=== PATIENT | male | born 1970 | race Caucasian/White ===

== ENCOUNTER 2017-07-10 07:04 | Emergency (ER) | payer SELFPAY ==
[2017-07-10 08:07] LABS: #Lymphocytes 0.7 thou/uL (1.20-3.40); #Monocytes 0.8 thou/uL (0.11-0.59); %Basophils 0.3 % (0.0-1.0); %Eosinophils 0.1 % (0.0-10.0); %Lymphocytes 5.8 % (21.0-51.0); %Monocytes 6.1 % (0.0-10.0); Hematocrit 58.4 % (42.0-52.0); Mean Platelet Volume 8.1 fL (7.4-10.4); Red Blood Cell (RBC) Count 6.65 mill/uL (4.70-6.10); White Blood Cell (WBC) Count 12.5 thou/uL (4.8-10.8)
[2017-07-10 08:31] LABS: ALT (SGPT) 32 U/L (8-55); AST (SGOT) 20 U/L (5-34); Alkaline Phosphatase 84 U/L (40-150); Anion Gap 15 mmol/L (10-20); BUN (Urea Nitrogen) 18 mg/dL (8.9-20.6); Bilirubin, Total 0.8 mg/dL (0.2-1.2); Calc. Creatinine Clearance 0 mL/min (70-130); Calcium 9.9 mg/dL (7.8-10.44); Carbon Dioxide 22 mmol/L (22-29); Chloride 105 mmol/L (98-107); Estimated GFR-MDRD 65; Globulin 3.3 g/dL (2.4-3.5); Protein, Total 7.7 g/dL (6.0-8.3)
[2017-07-10 08:36] LABS: Troponin I Less than 0.010 ng/mL (< 0.028)
[2017-07-10] MEDS ORDERED: Ketorolac Tromethamine 30 MG/ML VIAL ONE (08:50)
[2017-07-10] MEDS ORDERED: Ondansetron HCl/PF 4 MG/2 ML Vial ONE (08:50)
--- NOTE | 2017-07-10 08:57 | RAD ---
PORTABLE CHEST: 07/10/2017 PROVIDED CLINICAL HISTORY: Chest pain. COMPARISON: 03/25/2013 FINDINGS: The cardiac and mediastinal silhouette are unchanged in appearance. There is possible air space dise ase at the medial right lung base versus subsegmental atelectasis. The lungs appear otherwise clear. No pleural fluid or pneumothorax apparent. Postoperative changes involving the left clavicle area again seen. IMPRESSION: Questionable air space disease at the right lung base versus subsegmental atelectasis. Please correl ate with concerns for pneumonia. Follow-up PA and lateral views of the chest are recommended. POS: [facility]
--- NOTE | 2017-07-10 09:25 | RAD ---
ABDOMEN TWO VIEWS: History: Abdominal pain. Comparison: None. FINDINGS: On the upright view, no free air in the hemidiaphragms. No dilated air filled loops of large or small bowel. Phleboliths in the pelvis. No abnormal calcification projecting over the renal shadows. IMPRESSION: No acute intraabdominal abnormality. POS: [facility]
--- NOTE | 2017-07-13 15:00 | EKG ---
Test Reason : Blood Pressure : / mmHG Vent. Rate : 098 BPM Atrial Rate : 098 BPM P-R Int : 134 ms QRS Dur : 084 ms QT Int : 354 ms P-R-T Axes : 022 029 021 degrees QTc Int : 451 ms Normal sinus rhythm Normal ECG Confirmed by SELVIN MCKEON D.O. ([id number]), copy editor MELISSA TOVAR ([id number]) on 07/13/2017 2:59:31 PM Referred By: Confirmed By:SELVIN MCKEON D.O.
== END 2017-07-10 11:54 | disposition home or self-care (01) ==
LOC: ERS 07:04
DX: J18.9 Pneumonia, unspecified organism (principal); K52.9 Noninfective gastroenteritis and colitis, unspecified; Z71.6 Tobacco abuse counseling; F17.210 Nicotine dependence, cigarettes, uncomplicated
CPT/HCPCS: 71010; 74020; 80053; 82553; 84484; 85025; 93005; 96361; 96374; 96375; 99406; J1885; J2405

== ENCOUNTER 2017-11-09 11:07 | Observation (INO) | payer SELFPAY ==
[2017-11-09 12:05] LABS: #Basophils 0.1 thou/uL (0.0-0.2); #Eosinphils 0.1 thou/uL (0.0-0.7); #Lymphocytes 2.1 thou/uL (1.20-3.40); #Monocytes 0.6 thou/uL (0.11-0.59); #Neutrophils 4.7 thou/uL (1.40-6.50); %Basophils 0.7 % (0.0-1.0); %Eosinophils 1.5 % (0.0-10.0); %Lymphocytes 27.4 % (21.0-51.0); %Monocytes 8.3 % (0.0-10.0); %Neutrophils 62.1 % (42.0-75.0); Mean Corpuscular HGB CONC 34.2 g/dL (32.0-36.0); Mean Corpuscular Hemoglobin 29.6 pg (27.0-31.0); Mean Corpuscular Volume 86.5 fl (80.0-94.0); Mean Platelet Volume 7.5 fL (7.4-10.4); Platelet Count 196 thou/uL (130-400); RBC Distribution Width 13.3 % (11.5-14.5); Red Blood Cell (RBC) Count 6.08 mill/uL (4.70-6.10); White Blood Cell (WBC) Count 7.5 thou/uL (4.8-10.8)
--- NOTE | 2017-11-09 12:20 | CT ---
CT BRAIN: DATE: 11/09/17. PROVIDED CLINICAL HISTORY: Syncope. FINDINGS: Comparison 03/25/13. The ventricular system appears normal in size and morphology. There is no evide nce for intracranial hemorrhage or mass effect. The extracranial soft tissues and osseous structures demonstrate an unremarkable CT appearance. IMPRESSION: No evidence for intracranial hemorrhage or mass effect. POS: [facility]
[2017-11-09 12:24] LABS: ALT (SGPT) 18 U/L (8-55); AST (SGOT) 13 U/L (5-34); Albumin 4.2 g/dL (3.5-5.0); Alcohol 13 mg/dL (Less than 10); Alkaline Phosphatase 81 U/L (40-150); Anion Gap 14 mmol/L (10-20); BUN (Urea Nitrogen) 11 mg/dL (8.9-20.6); Bilirubin, Total 0.7 mg/dL (0.2-1.2); CK (CPK) 118 U/L (30-200); Calc. Creatinine Clearance 0 mL/min (70-130); Calcium 8.9 mg/dL (7.8-10.44); Carbon Dioxide 19 mmol/L (22-29); Chloride 112 mmol/L (98-107); Estimated GFR-MDRD 80; Globulin 2.9 g/dL (2.4-3.5); Glucose 89 mg/dL (70-105); Protein, Total 7.1 g/dL (6.0-8.3); Sodium 141 mmol/L (136-145)
[2017-11-09 12:26] LABS: CKMB 1.1 ng/mL (0-6.6)
--- NOTE | 2017-11-09 12:33 | CT ---
CT CERVICAL SPINE NONCONTRAST: HISTORY: A 47-year-old male status post acute cervical trauma. FINDINGS: There are no jumped or perched facets. There is no evidence of acute fracture. The vertebral body h eights are maintained. There is no prevertebral soft tissue swelling. IMPRESSION: No evidence of acute fracture or acute traumatic subluxation. titi [] POS: [facility]
[2017-11-09 12:34] LABS: Troponin I 0.011 ng/mL (< 0.028)
--- NOTE | 2017-11-09 13:08 | RAD ---
RADIOGRAPH CHEST 1 VIEW: Date: 11/09/17. Time: 11:55 a.m. HISTORY: A 47-year-old male status post syncope. COMPARISON: 07/10/17. FINDINGS: Again noted are the metallic plate and screws fixating the left clavicle. No cardiomegaly. No conso lidation or pulmonary edema. No pneumothorax. Lateral costophrenic angles are sharp. Apparently ne w finding of a small stellate right perihilar nodular density. This may be part of normal hilar stru ctures rather than a pathologic mass, perhaps due to positional differences between the current study and the prior. IMPRESSION: 1. No acute cardiopulmonary findings. 2. Questionable right perihilar stellate density. 3. Recommend followup with PA and lateral views. SONIA [] POS: [facility]
[2017-11-09 13:59] LABS: Bilirubin Negative (Negative); Blood, Urine Negative (Negative); Clarity CLEAR (Clear); Glucose, Urine (Dipstick) Negative (Negative); Leukocyte Negative (Negative); Nitrite Negative (Negative); Protein, Urine (Dipstick) Negative (Neg-Trace); Urobilinogen 0.2 mg/dL (0.2-1.0); pH, Urine 5.5 (5.0-9.0)
[2017-11-09 14:01] LABS: Amphetamine Not Detected (NotDetected); Barbiturates Screen Not Detected (NotDetected); Benzodiazepine Screen Not Detected (NotDetected); Cocaine Metabolite Screen Not Detected (NotDetected); Medtox Control Line Valid? VALID (VALID); Medtox Reader # READER 1; Methadone Not Detected (NotDetected); Methamphetamine Not Detected (NotDetected); Opiate Screen Not Detected (NotDetected); Oxycodone Screen Not Detected (NotDetected); Phencyclidine (PCP) Not Detected (NotDetected); THC/Cannabinoid Screen Not Detected (NotDetected); Tricyclic Screen Not Detected (NotDetected)
[2017-11-09] MEDS ORDERED: Methocarbamol 1 GM/10 ML VIAL SLOW IVP SCH (15:00)
[2017-11-09] MEDS ORDERED: Ketorolac Tromethamine 30 MG/ML VIAL ONE (15:00)
[2017-11-09] MEDS ORDERED: ISOVUE-370 76%-LOCM 1 ML ONE (15:20)
--- NOTE | 2017-11-09 15:42 | CT ---
CT ANGIOGRAM GREAT VESSELS NECK WITH IV CONTRAST AND 3D MIP RECONSTRUCTIONS CT ANGIOGRAM BRAIN WITH IV CONTRAST AND 3D MIP RECONSTRUCTIONS CTA PERFUSION BRAIN: PROVIDED CLINICAL HISTORY: Syncope. FINDINGS: There is a normal 3-vessel configuration of the great vessels of the arch. There is no significant s tenosis involving the common carotid, internal carotid, or vertebral arteries. There is no evidence for focal vessel stenosis, branch occlusion, or aneurysm involving the [place]. There is no asymmetric increased mean transit time seen to suggest territorial ischemia. IMPRESSION: 1. Negative CT angiogram neck. 2. Negative CT angiogram brain with perfusion. POS: [facility]
--- NOTE | 2017-11-09 17:16 | RAD ---
LEFT SHOULDER RADIOGRAPHS THREE VIEWS 11/09/17 PROVIDED CLINICAL HISTORY: Syncope. FINDINGS: Postoperative changes involving the left clavicle are seen. There is no evidence for fracture or othe r acute osseous abnormality. If there is persistent clinical concern, conservative management and fol lowup imaging are advised. IMPRESSION: As above. POS: [facility]
[2017-11-09] MEDS ORDERED: Labetalol HCl 100 MG/20 ML VIAL SLOW IVP PRN (18:14)
[2017-11-09] MEDS ORDERED: Acetaminophen 325 MG TAB PO PRN (18:14)
[2017-11-09] MEDS ORDERED: Ondansetron PF 4 MG/2 ML Vial IVP PRN (18:14)
[2017-11-09] MEDS ORDERED: hydrALAZINE 20 MG/ML VIAL SLOW IVP PRN (18:14)
[2017-11-09] MEDS ORDERED: Aspirin 81 mg Enteric Coated Tablet PO SCH (18:30)
[2017-11-09 18:44] LABS: Actual Bicarbonate (HCO3a) 23.2 mEq/L (22-26); Base Excess (BEa) -0.8 mEq/L (0 (+/-) 2.5); CO2 Tension 36.8 mmHg (35.0-45.0); Carboxyhemoglobin (COHb) 4.7 gm% (0.0-3.0); Hematocrit-ABG 48.8 % (42.0-52.0); Hemoglobin (Hb) 16.9 g/dL (14.0-18.0); O2 Tension (PaO2) 75.5 mmHg (80.0-100.0); pH, Arterial 7.42 (7.35-7.45)
[2017-11-09 18:45] LABS: Analyzer IN Cardio ER; Calcium, Ionized 1.2 mmol/L (1.12-1.30); Potassium - ABG Lab 3.4 mmol/L (3.70-5.30); Puncture Site RRA
[2017-11-09 19:38] VITALS: BMI 33.3
[2017-11-09 20:29] LABS: Bacteria/HPF None Seen HPF (None Seen); Hyaline Casts/LPF NONE SEEN LPF (0-3 Hyaline); RBC/HPF None Seen HPF (0-3); Squamous Epithelial 0-3 HPF (0-3); WBC/HPF None Seen HPF (0-3)
--- NOTE | 2017-11-09 20:44 | HP ---
CHIEF COMPLAINT: Altered mental status. HISTORY OF PRESENT ILLNESS: This is a 47-year-old male with minimal past medical history, who was brought in after he failed to answer phone calls from his father. He was brought in by EMS. He was found unresponsive by EMS and brought in for altered mental status. At the time of my evaluation, the patient is currently awake and conversant, although he endorses being somewhat "groggy" and has difficulty answering questions, but when he does answer the questions they appear to be appropriate answers. The patient's and father are with him at bedside and state that he has had a somewhat similar event where he had loss of memory several years ago. This slowly came back after several months. However, at this point in time he has no actual loss of memory, he is simply groggy. The recent sequence of advances, he was last seen in a normal state by his yesterday. He went out for dinner and drinks with 4 of his colleagues and that was the last time she saw him. REVIEW OF SYSTEMS: As per HPI. Constitutional: In the last 2 weeks, no issues with weight loss or gain or fevers and chills. No recent illnesses. HEENT: No recent complaints of headache or vision changes. Cardiovascular: No recent issues with chest pain, chest pressure, left-sided arm numbness or tingling. Respiratory: No recent complaints of shortness of breath. No recent upper respiratory infection. No recent cough. No recent issues with congestion. Gastrointestinal: No recent complaints of nausea or vomiting. The patient has been demonstrating a retained appetite. No complaints of diarrhea or constipation. Genitourinary: No complaints of dysuria or urinary frequency or change in urine color, quantity, or odor. Musculoskeletal: No recent complaints of myalgias or arthralgias. Remainder of the review of systems otherwise negative. PAST MEDICAL HISTORY: The patient has no known past medical issues that he is aware of. It appears that during his evaluation, several years ago at our facility, there is concern for intracranial hypertension, but the patient himself does not endorse any known medical issues. His last surgery was in 2009 , involved a plate placement in his right shoulder for a skeletal injury. HOME MEDICATIONS: None. The patient denies any over the counters, herbals, vitamins or supplements. ALLERGIES: No allergy listed. FAMILY HISTORY: Significant for cardiac disease and breast cancer and the patient's niece has seizures and takes antiepileptic medications. No other family members with issues with seizures, loss of consciousness or strokes. SOCIAL HISTORY: Occasional alcohol use, no illicit drug use. The patient is accompanied by his father and . He endorses wishing to be FULL CODE at this point in time. PHYSICAL EXAMINATION: GENERAL: The patient is lying in the hospital bed, in no acute distress, somnolent, but arousable as described above. HEENT: Normocephalic, atraumatic. Moist mucous membranes, equal ocular motions are intact. Reasonable dentition. No posterior oropharyngeal erythema or exudate. CARDIOVASCULAR: S1, S2. No murmurs, rubs or gallops. Pulses 2+ bilateral upper extremities, no pitting pedal edema. No carotid bruits. RESPIRATORY: Limited anterior examination, otherwise no conversational dyspnea. No wheezes, rales or rhonchi. Reasonable air movement. ABDOMEN: Positive bowel sounds, soft, nontender to palpation. MUSCULOSKELETAL: Moving all 4 extremities independently. LABORATORY DATA AND IMAGING: WBC 7.5, hemoglobin 18.0, hematocrit is 52.6, platelets 196. Sodium 141, potassium 4.0, chloride 112, bicarb 19, BUN 11, creatinine 1.00, glucose 89, calcium 8.9, total bilirubin 0.7, AST 13, ALT 18, alkaline phosphatase 81, creatine kinase 118, troponin 0.011, serum total protein 7.1, albumin 4.2, TSH 1.29. UA is bland. UDS is negative. Serum alcohol level is 13. On 11/09/2017, shoulder x-ray. Impression: "Postoperative changes involving the left clavicle are seen. There is no evidence for fracture or other acute osseous abnormality. If there is persistent clinical concern, conservative management and follow up imaging are advised." On 11/09/2017, CTA of the head and neck with perfusion. Impression: "Negative CT angiogram neck. Negative CT angiogram brain with perfusion." On 11/09/2017, Chest x-ray. Impression: "No acute cardiopulmonary findings. Questionable right perihilar stellate density. Recommend follow up with PA and lateral views." On 11/09/2017, CT of the cervical spine without contrast. Impression: "No evidence of acute fracture or acute traumatic subluxation." On 11/09/2017, brain CT. Impression: "No evidence for intracranial hemorrhage or mass effect." ASSESSMENT AND PLAN: A 47-year-old male presenting with altered mental status. Altered mental status appears to be improving without evidence so far of memory loss. Follow up with an MRI, EEG. I appreciate Neurology consult. Unclear exact etiology, question of the role that his prior intracranial hypertension have played. Serial vital signs, serial neurological monitoring. Admit the patient to stroke unit under observation status. Thank you for asking me to care for the patient. Questions or concerns, contact me at [facility]. BARBARA
[2017-11-09] MEDS ORDERED: Atorvastatin Calcium 40 MG TAB PO SCH (21:00)
[2017-11-09] MEDS: Heparin 5,000 UNITS/ML VIAL SC SCH (22:51)
[2017-11-10 04:46] LABS: #Basophils 0.1 thou/uL (0.0-0.2); #Eosinphils 0.2 thou/uL (0.0-0.7); #Monocytes 0.7 thou/uL (0.11-0.59); #Neutrophils 4.6 thou/uL (1.40-6.50); %Basophils 0.7 % (0.0-1.0); %Eosinophils 2.8 % (0.0-10.0); %Lymphocytes 34.8 % (21.0-51.0); %Monocytes 8.5 % (0.0-10.0); %Neutrophils 53.3 % (42.0-75.0); Hemoglobin 16.4 g/dL (14.0-18.0); Mean Corpuscular HGB CONC 34.4 g/dL (32.0-36.0); Mean Corpuscular Volume 87.2 fl (80.0-94.0); Mean Platelet Volume 7.7 fL (7.4-10.4); Platelet Count 192 thou/uL (130-400); RBC Distribution Width 13.1 % (11.5-14.5); Red Blood Cell (RBC) Count 5.49 mill/uL (4.70-6.10); White Blood Cell (WBC) Count 8.6 thou/uL (4.8-10.8)
[2017-11-10 05:15] LABS: ALT (SGPT) 15 U/L (8-55); AST (SGOT) 11 U/L (5-34); Albumin 3.6 g/dL (3.5-5.0); Alkaline Phosphatase 72 U/L (40-150); Anion Gap 10 mmol/L (10-20); BUN (Urea Nitrogen) 15 mg/dL (8.9-20.6); Bilirubin, Total 0.7 mg/dL (0.2-1.2); Calc. Creatinine Clearance 113 mL/min (70-130); Calcium 8.6 mg/dL (7.8-10.44); Carbon Dioxide 26 mmol/L (22-29); Cardiac Risk 6.4 (Less than 4.5); Chloride 109 mmol/L (98-107); Cholesterol 178 mg/dl (< 200 Desired); Estimated GFR-MDRD 67; Glucose 99 mg/dL (70-105); HDL Cholesterol 28 mg/dL (>60 Neg Risk); Magnesium 2.4 mg/dL (1.6-2.6); Potassium 3.5 mmol/L (3.5-5.1); Protein, Total 6.6 g/dL (6.0-8.3); Sodium 141 mmol/L (136-145); Triglycerides 597 mg/dL (Less than 150)
[2017-11-10] MEDS ORDERED: Aspirin 81 mg Enteric Coated Tablet PO SCH (09:00)
[2017-11-10] MEDS: Heparin 5,000 UNITS/ML VIAL SC SCH ×2 (09:21→15:04)
--- NOTE | 2017-11-10 10:38 | PDOC.PN ---
- Subjective Encounter Start Date: 11/10/17 Encounter Start Time: 11:50 CC: Altered mental status sub: pt denies confusion, mental status improving - Objective Resuscitation Status: Resuscitation Status FULL:Full Resuscitation Vital Signs & Weight: Vital Signs (12 hours) Temp Pulse Resp BP Pulse Ox 11/10/17 08:00 97.5 F L 63 16 11/10/17 07:57 97.5 F L 63 16 111/67 95 11/10/17 03:43 97.5 F L 80 16 102/72 95 11/09/17 23:54 97.6 F 60 16 124/77 95 Weight Weight 226 lb 2 oz Result Diagrams: 11/10/17 04:18 11/10/17 04:18 Phys Exam - Physical Examination Constitutional: NAD HEENT: moist MMs Neck: no JVD Respiratory: no wheezing, no rales, no rhonchi Cardiovascular: RRR, no significant murmur, no rub Gastrointestinal: soft, non-tender, no distention Musculoskeletal: no edema Neurological: non-focal, moves all 4 limbs Psychiatric: normal affect, A&O x 3 Skin: no rash Dx/Plan - Plan Pt is 47 yrs old male now admitted to hospital for altered mental status 1. Altered mental status: MRI pending CT no acute stroke Continue neurochecks 2. DVT & GI prophylaxis: SCD & PPI Case d/w pt & RN
--- NOTE | 2017-11-10 13:29 | MRI ---
MRI BRAIN NONCONTRAST: DATE: 11/10/17. HISTORY: A 47-year-old male with TIA and syncope. FINDINGS: The ventricles are normal in size and configuration. There is no major intraaxial signal abnormality , restricted diffusion, midline shift or any other mass effect, recent intraaxial hemorrhage, or extr aaxial fluid collection. The sella turcica is expanded, and filled with CSF. The pituitary gland is very thin and flattened along the floor of the sella turcica. The bone marrow signal of the clivus is normal. There are several small T2 hyperintense ovoid lesions in the nasopharyngeal mucosal space , probably representing mucous retention cysts. IMPRESSION: 1. The brain is normal. 2. Partially empty sella. jn[] POS: [facility]
[2017-11-10 15:42] VITALS: BP 136/77; TEMP 97.8
--- NOTE | 2017-11-11 16:12 | CON ---
DATE OF CONSULTATION: 11/10/2017 CONSULTING PHYSICIAN: Hospitalist Service. IMPRESSION: Period of amnesia probably secondary to alcohol use. PLAN: MRI of the brain. Mr. Gutierrez is a 47-year-old man, who reports he was out at [place] drinking with friends. He got in his truck and was getting ready to leave. He apparently lost consciousness at that point and sle pt in the truck overnight. When he woke up in the morning, he was having difficulty functioning. He tried to get some people that were passing by to tend to him, but he finally was able to get someone to come over to the truck and they called for an ambulance. He reports that he was looking at thing s and they did not make sense to him as to what he was looking at. He came into the emergency room y esterday. His workup included a CT and CTA, both of which were unremarkable. His laboratory studies showed a negative drug screen with alcohol level of 13. His chemistry panel was otherwise unremarka ble. He reports that today things seemed to be going reasonably well. Yesterday, he recall that the re was pain in the left shoulder down to the elbow, it was deep and aching. He had an episode of amn esia 4 years ago, which was attributed to a concussion. He denies any other episodes like this in be tween. PAST MEDICAL HISTORY: Otherwise negative. FAMILY HISTORY: Noncontributory. ALLERGIES: PENICILLIN. SOCIAL HISTORY: Positive for alcohol, but denies any illicit drug use. MEDICATIONS: None. REVIEW OF SYSTEMS: No complaint of headache, nausea, vomiting, vertigo, lateralized weakness or numb ness. PHYSICAL EXAMINATION: GENERAL: He is a healthy-appearing middle-aged man, in no distress. VITAL SIGNS: Blood pressure 111/67, pulse 63, respirations 16, temperature 97.5. HEENT: Unremarkable. NECK: Supple. EXTREMITIES: No cyanosis or edema. NEUROLOGIC: He is alert and appropriate. His speech is fluent and clear. His exam is nonfocal. LABORATORY STUDIES: Unremarkable CBC, blood gas, comprehensive metabolic panel, urinalysis and toxic ology. IMAGING: Included a CTA of the brain with a perfusion study, which was normal. CT of the cervical s pine, which did not show any evidence of acute fracture or subluxation. SUMMARY: A middle-aged man with transient period of altered mental status with nothing remarkable on his workup at this point. Alcohol in his system the following day, which he may have had a fa irly high level before he passed out in his truck. I do not see anything remarkable, otherwise suspe ct this workup would be unremarkable as well.
--- NOTE | 2017-11-12 08:14 | DIS ---
DATE OF ADMISSION: 11/09/2017 DATE OF DISCHARGE: 11/10/2017 DIAGNOSES: 1. Altered mental status. 2. Alcohol abuse. DISCHARGE CONDITION: Stable. On presentation to the hospital stay Neurology proceeded with a CT of the cervical spine. DISCHARGE MEDICATIONS: See med rec form. HOSPITAL COURSE: The patient is a 48-year-old male admitted with altered mental status. The patient was seen by Neurology. MRI brain was done. MRI brain was unremarkable. CTA of the head and neck w as done and each was stable. The patient was advised to follow up with Neurology outpatient. The pa tient is stable at the time of discharge.
--- NOTE | 2017-12-28 15:09 | EKG ---
Test Reason : AMS Blood Pressure : / mmHG Vent. Rate : 088 BPM Atrial Rate : 088 BPM P-R Int : 154 ms QRS Dur : 086 ms QT Int : 364 ms P-R-T Axes : 031 017 021 degrees QTc Int : 440 ms Poor data quality, interpretation may be adversely affected Normal sinus rhythm Normal ECG Confirmed by RANDEE DO ([id number]), writer editor MELISSA TOVAR ([id number]) on 12/28/2017 3:08:53 PM Referred By: SONU DO Confirmed By:RANDEE DO
== END 2017-11-10 16:57 | disposition home or self-care (01) ==
LOC: ERS 11:07 → 2SE 16:53
PROVIDERS: ADMIT Internal Medicine; ATTEND Internal Medicine
DX: R41.82 Altered mental status, unspecified (principal); R41.3 Other amnesia; Z88.0 Allergy status to penicillin
CPT/HCPCS: 0042T; 36415; 36416; 51701; 70450; 70496; 70498; 70551; 71045; 72125; 80053; 80061; 80306; 80307; 81003; 81015; 82553; 82805; 83735; 84443; 84484; 85025; 93005; 96361; 96374; 96375; G0378; J1644; J1885; J2800

== ENCOUNTER 2022-08-30 10:19 | Outpatient (CLI) | payer OTHER | END 2022-08-30 10:20 | disposition home or self-care (01) | LOC: BICCT 10:19 | PROVIDERS: ATTEND Family Medicine | DX: Z12.2 Encounter for screening for malignant neoplasm of respiratory organs (principal); R09.89 Other specified symptoms and signs involving the circulatory and respiratory systems; G45.9 Transient cerebral ischemic attack, unspecified; F17.210 Nicotine dependence, cigarettes, uncomplicated | CPT/HCPCS: 71046; 71271 ==

== ENCOUNTER 2022-09-21 08:33 | Outpatient (CLI) | payer OTHER ==
[2022-09-22] MEDS ORDERED: Gadobenate Dimeglumine 529 MG/1 ML (20ML VIAL) ONE (15:10)
== END 2022-09-21 08:34 | disposition home or self-care (01) ==
LOC: MRI 08:33
PROVIDERS: ATTEND Family Medicine
DX: G45.9 Transient cerebral ischemic attack, unspecified (principal)
CPT/HCPCS: 70553